=== PATIENT | female | born 1930 | race Caucasian/White ===

== ENCOUNTER 2018-05-13 02:50 | Emergency (ER) | payer OTHER, MEDICARE ==
[~2018-05-13] VITALS: Ht 167.6 cm; Wt 75.3 kg
[2018-05-13 02:50] VITALS: BP_SYST 154
[2018-05-13 07:46] VITALS: BP_SYST 146
[2018-05-14] MEDS ORDERED: METO25TA3 PO (11:17)
[2018-05-14] MEDS ORDERED: TIMO5DRO4 OP (11:17)
[2018-05-14] MEDS ORDERED: MEGE400O PO (11:17)
[2018-05-14] MEDS ORDERED: RIVA10TA PO (11:17)
[2018-05-14] MEDS ORDERED: AMI200 PO (11:17)
[2018-05-14] MEDS ORDERED: FAMO20TA8 PO (11:17)
== END 2018-05-13 07:46 | disposition home or self-care (01) ==
LOC: SED 02:50
DX: S00.03XA Contusion of scalp, initial encounter (principal); S19.9XXA Unspecified injury of neck, initial encounter; I48.91 Unspecified atrial fibrillation; Z88.2 Allergy status to sulfonamides; Z88.6 Allergy status to analgesic agent; W18.2XXA Fall in (into) shower or empty bathtub, initial encounter; Y93.89 Activity, other specified; Y92.89 Other specified places as the place of occurrence of the external cause; Y99.8 Other external cause status
CPT/HCPCS: 70450-TC; 72125-TC; 93005; 99284